=== PATIENT | male | born 2005 | race Caucasian/White ===

== ENCOUNTER 2025-06-21 16:03 | Emergency (ER) | payer OTHER, SELFPAY ==
--- OUTSIDE RECORDS SUMMARY | 2024-07-01 06:15 | XMS_ITS ---
Author Organization [facility] ed[facility] Address [address] [place] [address] Care Team Providers Care Labor Training Manager Name Role Phone Wagner Figueroa Unavailable Unavailable REASON FOR VISIT 10 a ING DH PEP [facility] PT 12:15 p, * Kemp Pre Emp NO DRUG SCREEN, * [facility] Pre-Employment Procedures Procedure Date Ordered Date Performed Result Body Sit e Vision Screening 07/01/2024 N/A Hearing Screening 07/01/2024 N/A BTE 07/01/2024 N/A Encounters Encounter Location Date Provider Diagnosis [facility] [address] [place] [address] 07/01/2024 Wagner Figueroa Pre-employment healt h screening examination Z02.1 Assessments Encounter Date Diagnosis (ICD Code) Assessment Notes Treatment Notes Treatment Clinical Notes Section Notes 07/01/2024 Pre-employment health screening examination (ICD-10 - Z02.1) Plan Of Treatment Pending Test Test Name Order Date Urinalysis, Routine 07/01/2024 Vision Screening 07/01/2024 Hearing Screening 07/01/2024 BTE 07/01/2024 Progress Notes * Parris WILKS LDOB:[birth year] (19 yo M)Acc No.[id number]:07/01/2024 Patient: Parris DUPREE Provider: Tomas Figueroa PA-C :2005 A ge:18 Y S ex:Male Date:07/01/2024 [id number] Subjective: * Chief Complaints: * 1 . 10 a ING DH PEP [facility] PT 12:15 p. 2. * Kemp Pre Emp NO DRUG SCREEN. 3. * Kemp Pre-Employment. * HPI: A DDITIONAL COMPLAINTS: Patient presents for pre-employment physical evaluation. Medical history forms and any accompanying health records are reviewed with the patients. * Medical History: Objective: * Vitals: Assessment: * Assessment: 1. P re-employment health screening examination - Z02.1 Plan: * Treatment: * Labs: * L ab: Urinalysis, Routine * Procedure Orders: * P rocedure: Vision Screening P rocedure: Hearing Screening P rocedure: BTE * Procedure Codes: P HYSI Physical Exam, BTE Physical Demands Test, HEARS HEARING SCREEN, VISIS VISION SCREEN, 84171 URINALYSIS, AUTO, W/O SCOPE, Modifiers: QW * Billing Information: * Visit Code: * Procedure Codes: PHYSI Physical Exam. BTE Physical Demands Test. HEARS HEARING SCREEN. VISIS VISION SCREEN. 78456 URINALYSIS, AUTO, W/O SCOPE. Modifiers: QW * Electronic signature of RACHEL Moore on 06/21/2025 at 06:21 PM CDT Sign off status: Pending * Provider: Tomas Figueroa PA-C Date: 07/01/2024 Generated for Jaqueline lacy/Ann Marie/eTransmitting on: 06/21/2025 06:21 PM CDT History and Physical Notes * HPI (History of Present Illness) Category Sub-Category Detail Notes Category Not es ADDITIONAL COMPLAINTS Patien t presents for pre-employment physical evaluation. Medical history forms and any accompanying health records are reviewed with the patients.
--- NOTE | ~2025-06-21 | US_ITS ---
US scrotum doppler INDICATION: Right testicular swelling. Rule out torsion. TECHNIQUE: Testicular sonogram utilizing grayscale and color Doppler FINDINGS: The testes are normal in size and appearance. No focal lesions are seen. The right testes measures 5.8 x 3.2 x 3.7 cm centimeters, and the left testis measures 5.7 x 2.5 x 3.2 cm cm. There is normal vascular flow to both testes. There is a right epididymal cyst measuring 5 mm. There is a right hydrocele. There is a right varicocele. IMPRESSION: 1. Right varicocele. 2: Moderate right hydrocele Reviewed, dictated and finalized at location A.
[2025-06-21 16:09] VITALS: BP 120/71; PULSE 78; RESP 16; TEMP 37.2; O2SAT 99
--- NOTE | 2025-06-21 16:14 | ED_ITS ---
HPI - Male Genitourinary General Chief complaint: Urogenital-Male Stated complaint: Testicle pain - sent for US Time Seen by Provider: 06/21/25 16:09 History of Present Illness HPI Narrative: This is a 19-year-old male with no significant past medical history presents to the ED for testicular swelling. Patient states for the past couple days, he has been having vague right testicular pain but yesterday, he began to have severe swelling and worsening pain prompting him to go to an outside ED. There he was examined was concerned for testicular torsion so he was advised to come to this ED for further evaluation and ultrasound. Denies dysuria, fevers, chills. He is sexually active with 1 partner. Review of Systems Review of Systems: Gen.: Denies fevers or chills Eyes: Denies eye pain or visual change ENT: Denies congestion Respiratory: Denies shortness of breath or cough CV: Denies chest pain or palpitations GI: Denies abdominal pain nausea, emesis or diarrhea denies burning, urgency, frequency or hematuria Musculoskeletal: Denies back pain or muscle pain Neuro: Denies numbness, tingling, weakness or focal weakness Skin: Denies rash Except as documented, all other systems reviewed and negative Exam Narrative: APPEARANCE: No acute distress, nontoxic, sitting in chair EYES: EOMI HEENT: Normocephalic, atraumatic, OMM RESPIRATORY: No respiratory distress CARDIOVASCULAR: Appears well perfused Abdomen: Nondistended : R testicle swollen, no overlying skin changes. Mild ttp to the body of the testicle. MUSCULOSKELETAl: Moves all extremities. No clubbing, cyanosis or edema. NEURO: Awake and alert. Following commands, speech normal, no focal deficits SKIN:: Warm, dry. No rashes lesions or abrasions PSYCHIATRIC: Normal affect/mood, Course Vital Signs Vital signs: Vital Signs Temperature 98.9 F 06/21/25 16:09 Pulse Rate 78 06/21/25 16:09 Respiratory Rate 16 06/21/25 16:09 Blood Pressure 120/71 06/21/25 16:09 Pulse Oximetry 99 06/21/25 16:09 Temperature 98.9 F 06/21/25 16:09 Pulse Rate 78 06/21/25 16:09 Respiratory Rate 16 06/21/25 16:09 Blood Pressure 120/71 06/21/25 16:09 Pulse Oximetry 99 06/21/25 16:09 MDM - Male Genitourinary MDM Narrative Medical decision making narrative: 19-year-old male who presented to the ED for right testicular swelling. On initial evaluation, patient was a new acute distress, afebrile, hemodynamically stable. He did have an enlarged right scrotum that was relatively nontender. No palpable masses. Testicle was nontender. Ultrasound scrotum revealed right hydrocele and right varicocele. No evidence of testicular torsion. Patient was educated on supportive underwear and supportive measures. He was given referral to urology for further evaluation and treatment. Patient was agreeable to this plan. Given strict return precautions. Differential Diagnosis Differential diagnosis: Likely epididymitis and other (Testicular torsion, hydrocele, varicocele, mass) Imaging Data Radiologist's impression: Impressions Scrotum Ultrasound 06/21/25 17:35 IMPRESSION: 1. Right varicocele. 2: Moderate right hydrocele Discharge Plan Discharge Clinical Impression: Hydrocele in adult, Right varicocele Patient Disposition: Home Condition: Stable Instructions: Antibiotic Form, Hidrocele (ED), Varicocele (ED) Additional Instructions: Wear more supportive underwear. Follow-up with urology for further evaluation if needed. Return to the ED for any new or worsening symptoms. Patient Language: Tristanian Follow-up/Referrals: Evin Saez MD [Physician, Urology] PHYSICIAN,LOGGING OPERATIONS INSPECTOR [Primary Care Provider, Internal Medicine]
--- OUTSIDE RECORDS SUMMARY | 2025-06-21 18:22 | XMS_ITS | Patient Health Record ---
Author Organization [facility] ed[facility] Address [address] [place] [address] Care Team Providers Care Home Inspector Name Role Phone Wagner Figueroa Unavailable Unavailable Reason For Referral No Information Procedures Procedure Date Ordered Date Performed Result Body Sit e BTE 07/01/2024 N/A Hearing Screening 07/01/2024 N/A Vision Screening 07/01/2024 N/A Encounters Encounter Location Date Provider Diagnosis [facility] [address] [place] [address] 07/01/2024 Wagner Figueroa Pre-employment healt h screening examination Z02.1 Assessments Encounter Date Diagnosis (ICD Code) Assessment Notes Treatment Notes Treatment Clinical Notes Section Notes 07/01/2024 Pre-employment health screening examination (ICD-10 - Z02.1) Plan Of Treatment Pending Test Test Name Order Date Urinalysis, Routine 07/01/2024 Vision Screening 07/01/2024 Hearing Screening 07/01/2024 BTE 07/01/2024 Insurance Providers Payer Name Payer Address Payer Phone Subscriber Number Group Number Insured Name Patient Relationship to Insured Coverage Start Date Coverage End Date [facility] Parris Wilks Self - patient is the insured
== END 2025-06-21 18:21 | disposition home or self-care (01) ==
LOC: ANHED 18:20
PROVIDERS: Emergency Provider Student in an Organized Health Care Education/Training Program
DX: N43.3 Hydrocele, unspecified (principal); I86.1 Scrotal varices
CPT/HCPCS: 76870; 93976; 99284